=== PATIENT | female | born 1970 | race Caucasian/White ===

== ENCOUNTER 2020-01-07 00:36 | Emergency (ER) | payer SELFPAY ==
[~2020-01-07] VITALS: Ht 172.7 cm; Wt 100.0 kg
[2020-01-07] MEDS ORDERED: SODIUM CHLORIDE 0.9% 1,000 ML IV ONE ×2 (01:12→02:30)
[2020-01-07 02:10] LABS: HEMATOCRIT. 27.6 % (36.0-48.0); HEMOGLOBIN. 8.9 g/dL (12.0-16.0); MEAN CORPUSCULAR HEMOGLOBIN 28.5 pg (28.0-32.0); MEAN CORPUSCULAR VOLUME 88.3 fL (81.0-99.0); PLATELET 72 x1000/uL (130-400); RED BLOOD CELL COUNT 3.13 mill/uL (4.2-5.4); RED CELL DISTRIBUTION WIDTH 23.1 % (11.6-14.6)
[2020-01-07 02:18] LABS: CHLORIDE 89 mEq/L (98-107)
[2020-01-07 02:22] LABS: ETHANOL BLOOD < 10 mg/dL
[2020-01-07 02:30] LABS: INR 1.4; PARTIAL THROMBOPLASTIN TIME 29.3 sec (23.4-31.0); PROTHROMBIN TIME 15.2 sec (9.6-11.0)
[2020-01-07] MEDS ORDERED: CALCIUM CHLORIDE 1GM/10ML SYR IV SCH (02:30)
[2020-01-07] MEDS ORDERED: DEXTROSE 50% WATER 50ML SYRINGE IV SCH (02:30)
[2020-01-07] MEDS ORDERED: INSULIN REGULAR (HUMULIN R) 300UNITS/3ML IV SCH (02:30)
[2020-01-07] MEDS ORDERED: ALBUTEROL (0.083%) 2.5MG/3ML NEB HHN SCH (02:30)
[2020-01-07] MEDS ORDERED: SODIUM BICARBONATE 8.4% 1 MEQ/ML 50ML SYR IV SCH (02:30)
[2020-01-07] MEDS ORDERED: NOREPINEPHRINE 4MG/250ML PMX 250 ML IV SCH (04:30)
[2020-01-07 07:18] LABS: CLARITY URINE CLOUDY (CLEAR); COLOR URINE DARK YELLOW (YELLOW); KETONES URINE TRACE (NEGATIVE); LEUKOCYTE ESTERASE URINE TRACE (NEGATIVE); NITRITE URINE NEGATIVE (NEGATIVE); OCCULT BLOOD URINE 2+ (NEGATIVE); PROTEIN URINE 1+ (NEGATIVE); SPECIFIC GRAVITY URINE 1.015 (1.005-1.030)
[2020-01-07 07:36] LABS: *BENZODIAZEPINES SCREEN URINE NEGATIVE (NEGATIVE); *COCAINE SCREEN URINE NEGATIVE (NEGATIVE)
[2020-01-07 07:37] LABS: *AMPHETAMINES SCREEN URINE NEGATIVE (NEGATIVE); METHADONE URINE SCREEN NEGATIVE (NEGATIVE); PHENCYCLIDINE URINE SCREEN NEGATIVE (NEGATIVE)
[2020-01-07 07:38] LABS: *BARBITURATES SCREEN URINE NEGATIVE (NEGATIVE)
[2020-01-07 07:44] LABS: CANNABINOID URINE SCREEN PRESUMTIVE POSITIVE (NEGATIVE); OPIATES URINE SCREEN PRESUMTIVE POSITIVE (NEGATIVE)
[2020-01-07 07:49] LABS: PLATELET ESTIMATE DECREASED
[2020-01-07 10:18] LABS: BG BASE EXCESS -1.1 mmol/L (-2.0-2.0); BG CARBOXYHEMOGLOBIN 1.7 % (0.5-1.5); BG DEOXYHEMOGLOBIN 4.8 % (0.0-5.0); BG FRACTION INSPIRED OXYGEN 28; BG HCO3 ACT 22.1 mmol/L (22.0-26.0); BG METHEMOGLOBIN 0.3 % (0.0-1.5); BG OXYGEN SATURATION 95.1 % (92.0-98.5); BG OXYHEMOGLOBIN 93.2 % (94.0-97.0); BG PCO2 31.2 mmHg (35.0-45.0); BG PH 7.468 (7.350-7.450); BG PO2 78.6 mmHg (75.0-100.0); BG SAMPLE SITE RIGHT BRACHIAL; BG TOTAL HEMOGLOBIN 9.1 g/dL (12.0-18.0); BG VENT MODE NASAL CANNULA
[2020-01-07] MEDS ORDERED: ALBUMIN HUMAN 25GM/100ML (25%) IV ONE (11:00)
[2020-01-07 11:54] LABS: HEMATOCRIT. 27.1 % (36.0-48.0); HEMOGLOBIN. 8.7 g/dL (12.0-16.0); MEAN CORPUSCULAR HEMOGLOBIN 28.5 pg (28.0-32.0); MEAN CORPUSCULAR VOLUME 89.3 fL (81.0-99.0); MEAN PLATELET VOLUME 7.1 fl (7.4-10.4); PLATELET 77 x1000/uL (130-400); RED BLOOD CELL COUNT 3.03 mill/uL (4.2-5.4); RED CELL DISTRIBUTION WIDTH 23.4 % (11.6-14.6)
[2020-01-07 11:57] LABS: CHLORIDE 96 mEq/L (98-107)
[2020-01-07 12:05] LABS: INR 1.4; PROTHROMBIN TIME 14.7 sec (9.6-11.0)
[2020-01-07 12:35] LABS: PLATELET ESTIMATE DECREASED
[2020-01-07] MEDS ORDERED: NOREPINEPHRINE 32 MG in DEXT 5% WATER 468 ML IV PRN (15:30)
[2020-01-07] MEDS ORDERED: METRONIDAZOLE 500 MG PREMIX 100 ML IV SCH (17:15)
[2020-01-07] MEDS ORDERED: CEFEPIME 1,000 MG in DEXTROSE 5% WATER 50 ML IV SCH (18:00)
[2020-01-07 20:59] LABS: SODIUM URINE RANDOM 5 mEq/L
[2020-01-08] MEDS ORDERED: METRONIDAZOLE 500 MG PREMIX 100 ML IV SCH ×2 (02:00)
[2020-01-08 04:09] LABS: HEMATOCRIT. 26.2 % (36.0-48.0); HEMOGLOBIN. 8.5 g/dL (12.0-16.0); MEAN CORPUSCULAR HEMOGLOBIN 29.4 pg (28.0-32.0); MEAN PLATELET VOLUME 7.3 fl (7.4-10.4); PLATELET 66 x1000/uL (130-400); RED BLOOD CELL COUNT 2.88 mill/uL (4.2-5.4); RED CELL DISTRIBUTION WIDTH 24.2 % (11.6-14.6)
[2020-01-08 04:14] LABS: INR 1.6; PROTHROMBIN TIME 16.9 sec (9.6-11.0)
[2020-01-08 04:21] LABS: PHOSPHORUS 3.5 mg/dL (2.5-4.9)
[2020-01-08 04:42] LABS: HEPATITIS B SURFACE ANTIGEN NEGATIVE
[2020-01-08 05:12] LABS: HEPATITIS A AB IGM NEGATIVE (NEGATIVE)
[2020-01-08 05:39] LABS: CORTISOL 67.2 ucg/dL
[2020-01-08] MEDS ORDERED: CEFEPIME 1,000 MG in DEXTROSE 5% WATER 50 ML IV SCH ×4 (06:00)
[2020-01-08 06:50] LABS: ATYPICAL LYMPHOCYTES 1; PLATELET ESTIMATE DECREASED
[2020-01-08] MEDS ORDERED: MIDODRINE HCL 5MG TABLET PO SCH (09:00)
[2020-01-08] MEDS ORDERED: METRONIDAZOLE 500 MG PREMIX 100 ML IV NR (10:00)
[2020-01-09 08:00] VITALS: BP 104/65
[2020-01-09] MEDS ORDERED: MIDODRINE HCL 5MG TABLET PO SCH (09:00)
== END 2020-01-09 08:30 | disposition home or self-care (01) ==
LOC: ER 00:36 → EDBEDREQSVC 04:09 → EDBEDREQTM 04:09 → CANRESERV 01-08 16:09 → ENRESERV 01-08 16:09 → CANBEDREQ 01-08 17:15 → ER 01-09 08:30
DX: G93.41 Metabolic encephalopathy (principal); E87.1 Hypo-osmolality and hyponatremia; N17.0 Acute kidney failure with tubular necrosis; J90 Pleural effusion, not elsewhere classified; R18.8 Other ascites; R17 Unspecified jaundice; E87.5 Hyperkalemia; R41.82 Altered mental status, unspecified; R79.89 Other specified abnormal findings of blood chemistry; C50.911 Malignant neoplasm of unspecified site of right female breast; C78.7 Secondary malignant neoplasm of liver and intrahepatic bile duct; R16.0 Hepatomegaly, not elsewhere classified; E80.6 Other disorders of bilirubin metabolism; E43 Unspecified severe protein-calorie malnutrition; R62.7 Adult failure to thrive; D64.9 Anemia, unspecified; E86.0 Dehydration; E87.2 Acidosis; D69.6 Thrombocytopenia, unspecified; D68.9 Coagulation defect, unspecified; G89.29 Other chronic pain; Z92.21 Personal history of antineoplastic chemotherapy
CPT/HCPCS: 32555; 36415; 36600; 70450; 71045; 71250; 74176; 76700; 80048; 80053; 80305; 80320; 81003; 81025; 82040; 82140; 82375; 82805; 82945; 82962; 83605; 83615; 83690; 83880; 83930; 83935; 84157; 84300; 84443; 84484; 85025; 85610; 85730; 87040; 87070; 87086; 87205; 88312; 89050; 93005; 93970; 96361; 96365; 96366; 96367; 96375; 99291; J0692; J1815; J3490; J7030; J7060; P9047; Z7610; 99285; G0480